=== PATIENT | male | born 1990 | race Caucasian/White ===

== ENCOUNTER → 2016-07-25 | Outpatient (CLI) | payer BC, OTHER ==
[~2016-07-25] MED LIST: ACIPHEX 20 MG T20 MG PO; AMBIEN 5 MG TABL5 M1 PO; AMBIEN PO; ATIVAN0.5 MG PO; BUPRENORPHIN-N1 EACH SL; BUTRANS1 EAC1 TD; CLONAZEPAM 1 MG1 M1 PO; CLONIDINE0.1 PO; CREON 10 CAPSUL1 CA1 PO; DIPHENHIST50 MG PO; HYDROMORPHONE ER8 MG PO; HYDROMORPHONE HC8 MG PO; IBUPROFEN 200200 M1 PO; LASIX 20 MG TAB20 MG PO; NORTRIPTYLINE H10 M1 GT; OXYCODONE HCL15 MG PO; OXYCODONE HCL30 MG PO; OXYCODONE PO; OXYCONTIN15 MG PO; PERCOCET 10-321 EACH PO; PHENERGAN 25 MG25 M1 PO; PHENERGAN RECTAL; ROBAXIN 750 MG750 M1 PO; ROXICODONE30 M1; SANDOSTATI50 MCG/1 M IJ; SUBOXONE 4 MG-1 EACH SL; SUBOXONE 8 MG-1 EAC3 SL; TEFLARO 600 MG600 MG IV; TYLENOL325 MG PO; ZOFRAN8 MG PO; ZOLPIDEM TARTRA10 MG PO
== END ==
LOC: HYPER 09:51
DX: T23.321A Burn of third degree of single right finger (nail) except thumb, initial encounter (principal); K86.1 Other chronic pancreatitis; F17.210 Nicotine dependence, cigarettes, uncomplicated; T31.0 Burns involving less than 10% of body surface; X17.XXXA Contact with hot engines, machinery and tools, initial encounter; Y93.89 Activity, other specified; Y92.89 Other specified places as the place of occurrence of the external cause; Y99.8 Other external cause status

== ENCOUNTER → 2016-08-17 | Outpatient (CLI) | payer BC, OTHER | LOC: HYPER 07:07 | DX: S61.206D Unspecified open wound of right little finger without damage to nail, subsequent encounter (principal); K86.1 Other chronic pancreatitis; F17.210 Nicotine dependence, cigarettes, uncomplicated; X08.8XXD Exposure to other specified smoke, fire and flames, subsequent encounter ==

== ENCOUNTER → 2018-02-20 | Outpatient (CLI) | payer OTHER ==
[~2018-02-20] VITALS: Ht 185.4 cm; Wt 71.7 kg
[~2018-02-20] MED LIST changes: +ADDERALL XR 3030 MG PO; +ALPRAZOLAM1 MG PO; +AMBIEN 10 MG TA10 MG PO; +ROXICODONE15 M1 PO
--- NOTE | ~2018-02-20 | HPC ---
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 I am seeing the patient today for the first time at the [facility] in around 2 years. I had been seeing him at [facility] due to insurance restrictions. He is here today because my clinic will be moving from [facility] to [place]. He is on time for his scheduled medication. He is in school during finals week. This is a stress time for all students but particularly stressful for the patient who has prone towards stress related psychosomatic physical illness with increased abdominal pain and insomnia. He tells me he has not slept for over 4 nights. He has utilized his previous breakthrough medications and has been continuing on his Suboxone 1/4-1/2 tablet b.i.d. He tells me that he is in midst of a crisis, which is our term for severe abdominal pain episode, which in the past would have typically sent him to the Emergency Room. MEDICATIONS: Suboxone /4-1/2 tablet of Suboxone 8/2 b.i.d., oxycodone 15 mg 15 tablets provided per month to be utilized during severe episodes of pain only and to prevent Emergency Room visit, alprazolam 1 mg t.i.d. provided by his psychiatrist. He has been on a combination of an opioid and a benzodiazepine for many years. There have been no overdose circumstances and he is well aware that he must cautiously utilize his medications. Adderall XR 30 mg capsule daily, zolpidem 10 mg at bedtime, Creon capsule, diphenhydramine 50-100 mg p.r.n., promethazine 25 mg p.r.n., Zofran p.r.n. ALLERGIES: MORPHINE, CODEINE, FENTANYL, TRAMADOL, VANCOMYCIN. PHYSICAL EXAMINATION: He is disheveled. 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 His shoes are untied. His hair is unkempt. His speech is slightly slurred. His thought pattern is anxious. His chest is clear. His cardiac rhythm is regular. His abdomen is soft and tender below the xiphoid. IMPRESSION: 1. Chronic intractable abdominal pain with intermittent pancreatitis secondary to sphincter of Oddi syndrome with history of sphincterotomy, followed by reflux. [address] [place] [address] PAIN MANAGEMENT CONSULTATION Name: DOROTHY COLES STRUM Room #: REG JORJEPaul Jaramillo#: [id number] Admission: 02/20/18 Attend Phys: Hasmukh Carrion MD Discharge: Date of : 86 Report #: [id number] 2. Chronic anxiety disorder. 3. Chronic insomnia. 4. Chronic intractable abdominal pain. 5. Management of high risk medications under terms of an opioid agreement and will be followed monthly. RECOMMENDATIONS: I provided him with his medication, Suboxone, oxycodone 15 tablets and Zofran 8 mg 12 tablets. I then called [facility] and discussed his care with the pharmacist there instructing her not to release his medications today, but to monitor him tomorrow and if he appeared disheveled to not provide it for him tomorrow either. Buccal drug screen was performed to ensure that his appearance and his affect is not related to substance. Sleep deprivation would certainly cause these symptoms. The drug screen will be useful. I spoke later in the day with the pharmacy. Inadvertently, he was written for OxyContin 15 mg much more expensive and slow release drug. He did not take the medication at the pharmacy. Replacement prescription was provided for , 02/22/2018. The patient was notified. Followup visit planned in 1 month and by phone. I have been in contact with his father as well, keeping within HIPAA boundaries to ensure that the patient's safety is our great concern. By: [id number] Hasmukh Carrion MD /nt
[2018-02-20 11:47] VITALS: BP 130/83
== END ==
LOC: PAIN 09:17
DX: R10.10 Upper abdominal pain, unspecified (principal); G89.29 Other chronic pain; M54.6 Pain in thoracic spine; V89.2XXA Person injured in unspecified motor-vehicle accident, traffic, initial encounter; Z79.899 Other long term (current) drug therapy

== ENCOUNTER → 2018-03-15 | Outpatient (CLI) | payer OTHER ==
[~2018-03-15] VITALS: Ht 185.4 cm; Wt 75.1 kg
--- NOTE | ~2018-03-15 | HPC ---
[facility] [address] [place] [address] PAIN MANAGEMENT CONSULTATION Name: DOROTHY COLES Room #: REG MANDEEP SheikhKassi#: [id number] Admission: 03/15/18 Attend Phys: Hasmukh Carrion MD Discharge: Date of : 86 Report #: [id number] THIS REPORT FOR: //name// CC: [facility] physician/PCP Zaheer Savage DATE OF SERVICE: 03/15/2018 CHIEF COMPLAINT: Followup visit for management of chronic episodic abdominal pain, abdominal colic and pancreatitis. Followup visit for patient today. He is doing better since school is now over for this semester. 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 With your crisis of sorts during the final week of school, his abdominal pain exacerbated by the stress. He clearly has psychosomatic symptoms that exacerbate his abdominal pain. Now that he has slept and is no longer worrying about his tests, he seems to be more stable. I provided him with an additional prescription at last visit. He is here today for renewal of medication for the next 2 months. MEDICATIONS: Include: 1. Suboxone 1/2-03/16 tablet b.i.d. of Suboxone 10/12. 2. Oxycodone 15 mg are provided monthly for him to use only for severe abdominal episodes which keep him out of the Emergency Room. There have been months when he has not used his allotment. Continued to stress lowest effective dose. 3. Alprazolam 1 mg t.i.d. provided by psychiatrist, Dr. Zaheer Roberts. This combination of medications have been taken by him for anxiety disorder and he has had no complications. We will continue to monitor carefully. He is cautioned to not over utilize these medicines, continues to use Adderall 30 mg daily. He was encouraged to try and discontinue these medications. Creon, diphenhydramine, promethazine and Zofran p.r.n. ALLERGIES: MORPHINE, CODEINE, FENTANYL, TRAMADOL, VANCOMYCIN. PHYSICAL EXAMINATION: He looks more relaxed today. At last visit, he was disheveled. His speech pattern is clear. Thought process is clear. Does not appear anxious or overmedicated. His abdomen is soft and nontender. IMPRESSION: 1. Chronic abdominal pain with intermittent abdominal colic, likely related to episodes of pancreatitis. History of sphincter of Oddi syndrome following [facility] [email or web address] [address] PAIN MANAGEMENT CONSULTATION Name: SANKETDOROTHY CURRAN Room #: REG MANDEEP BrunnerKassiJacintoKassi#: [id number] Admission: 03/15/18 Attend Phys: Hasmukh Carrion MD Discharge: Date of : 86 Report #: [id number] sphincterotomy. 2. Management of high risk medication. 3. Chronic recurring anxiety disorder and insomnia. 4. Management of high risk medications under terms of an opioid contract. PLAN: 1. I reviewed with him his buccal drug screening from last visit. There were no illegal medications noted in his screen. Benzodiazepines were noted. 2. Discussed the importance of lowest effective dose and we reviewed our goals of treatment to avoid the Emergency Room and rely less on medication for management of his abdominal pain. 3. Continue with goal direction and school. 4. Followup visit planned in 2 months. By: [id number] Hasmukh Carrion MD /nt
[2018-03-15 09:03] VITALS: BP 135/97
--- NOTE | 2018-03-15 09:12 | NUR ---
Pain Clinic Assessment: 1. History of Osteoarthritis: Not Applicable History of Rheumatoid Arthritis: Not Applicable 2. Height: 6 ft. 1 in. 185.4 cm. Weight: 165.6 lb. oz. 75.116 kg. Patient's BMI: 21.9 3. Vital Signs: BP: 135/97 Pulse: 104 Resp: 18 Temp: 02 Sat: 100 ECG Mon: 4. Pain Intensity: 2 5. Fall Risk: Dizziness: N Needs help standing or walking: N Fallen in the last 3 months: N Fall risk comments: 6. Patient on Blood Thinner: None 7. History of Hypertension: N 8. Opioid Therapy greater than 6 weeks: Y Opiate Contract Signed: 08/24/15 9. Risk Assessment Tool Provided: HIGH RISK 11 10. Functional Assessment Tool: 11. Recreational Drug Use: Past greater than 3 mos Drug Type: Tobacco Use: Never Smoker Tobacco Type: Amount or Packs/day: How Many Years: Alcohol Use: No Frequency: Quant:
== END ==
LOC: PAIN 07:24
DX: R10.9 Unspecified abdominal pain (principal); F41.9 Anxiety disorder, unspecified; G47.00 Insomnia, unspecified; Z79.891 Long term (current) use of opiate analgesic; Z79.899 Other long term (current) drug therapy

== ENCOUNTER → 2018-05-28 | Outpatient (CLI) | payer OTHER ==
[~2018-05-28] VITALS: Ht 185.4 cm; Wt 75.3 kg
[~2018-05-28] MED LIST changes: +OXYCODONE-ACET1 EAC2 PO
--- NOTE | ~2018-05-28 | HPC ---
[facility] [address] [place] [address] PAIN MANAGEMENT CONSULTATION Name: DOROTHY COLES Room #: REG MANDEEP SheikhKassi#: [id number] Admission: 05/28/18 ������������������ Attend Phys: Hasmukh Carrion MD Discharge: ������������������ Date of : 86 Report #: [id number] THIS REPORT FOR: //name// CC: [facility] physician/PCP Hasmukh Carrion DATE OF SERVICE: 05/28/2018 Followup visit for chronic abdominal pain, intermittent with history of pancreatitis and sphincter of Oddi syndrome. The patient returned to the pain clinic today. I asked him to be more responsible in his appointments. Apparently, canceled his last appointment and then wanted to be immediately reinstated the next day for his medication. 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 He has been told all his life that he is brilliant and he is smart and can do well in school. He is now apparently studying astrophysics after attempts at biology, economics and physics. We discussed today responsibilities for managing his current medical condition. He is using Suboxone at a very low dose and I have been providing him with small amounts of oxycodone, which he uses only in crisis to avoid Emergency Room. As the record will reflect when he first came to our clinic, he was in the Emergency Room on multiple occasions, sometimes several times per month in order to receive intravenous opioids. He has been doing well from that standpoint and has avoided the Emergency Room for rescue. We have substantially reduced his use of oxycodone and other systemic opioids. A goal of remaining functional and active has been sought. I did challenge him today to try to get out and get a job. I told him today that we would reduce his oxycodone from 15 mg tablets to 10/325, but I will provide him with #15 tablets per month that he can use in case of emergency. The goal remains to avoid the hospital for rescue. PHYSICAL EXAMINATION: He is a bit disheveled. His affect is pleasant. He does not appear to be depressed or overmedicated. Examination of the abdomen reveals mild tenderness. Once again, his hands look dirtier than any mechanics. They are covered with deep seated grease and grime as well as heavy calluses. 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 IMPRESSION: 1. Chronic abdominal pain. 2. Management of high risk medications with Suboxone and small amount of [facility] [address] [place] [address] PAIN MANAGEMENT CONSULTATION Name: DOROTHY COLES Room #: REG CL Kannan.#: [id number] Admission: 05/28/18 ������������������ Attend Phys: Hasmukh Carrion MD Discharge: ������������������ Date of : 86 Report #: [id number] oxycodone per month. PLAN: I will continue to follow closely. His opioid agreement, the importance of safeguarding medications was reviewed. ��������������������������������������������� ���������������������������������������� By: ��������������������������������������������� [id number] Hasmukh Carrion MD /daniel
[2018-05-28 14:59] VITALS: BP 152/99
--- NOTE | 2018-05-28 15:02 | NUR ---
Pain Clinic Assessment: 1. History of Osteoarthritis: Not Applicable History of Rheumatoid Arthritis: Not Applicable 2. Height: 6 ft. 1 in. 185.4 cm. Weight: 166.0 lb. oz. 75.297 kg. Patient's BMI: 21.9 3. Vital Signs: BP: 152/99 Pulse: 107 Resp: 14 Temp: 02 Sat: 97 ECG Mon: 4. Pain Intensity: 2 5. Fall Risk: Dizziness: N Needs help standing or walking: N Fallen in the last 3 months: N Fall risk comments: 6. Patient on Blood Thinner: None 7. History of Hypertension: N 8. Opioid Therapy greater than 6 weeks: Y Opiate Contract Signed: 08/24/15 9. Risk Assessment Tool Provided: HIGH RISK 11 10. Functional Assessment Tool: 11. Recreational Drug Use: Past greater than 3 mos Drug Type: Tobacco Use: Never Smoker Tobacco Type: Amount or Packs/day: How Many Years: Alcohol Use: No Frequency: Quant:
== END ==
LOC: PAIN 05-10 07:02
DX: R10.11 Right upper quadrant pain (principal); G89.29 Other chronic pain; M54.5 Low back pain; Z79.899 Other long term (current) drug therapy

== ENCOUNTER → 2018-07-26 | Outpatient (CLI) | payer OTHER ==
[~2018-07-26] VITALS: Ht 185.4 cm; Wt 72.0 kg
[~2018-07-26] MED LIST changes: +BUPRENORPHINE HC2 MG SUBLING; +ONDANSETRON HCL4 M2 PO
[2018-07-26 13:31] VITALS: BP 143/101
--- NOTE | 2018-07-26 13:48 | NUR ---
Pain Clinic Assessment: 1. History of Osteoarthritis: Not Applicable History of Rheumatoid Arthritis: Not Applicable 2. Height: 6 ft. 1 in. 185.4 cm. Weight: 158.8 lb. oz. 72.031 kg. Patient's BMI: 21.0 3. Vital Signs: BP: 143/101 Pulse: 113 Resp: 12 Temp: 02 Sat: 97 ECG Mon: 4. Pain Intensity: 2 5. Fall Risk: Dizziness: N Needs help standing or walking: N Fallen in the last 3 months: Y Fall risk comments: PT HAS HIS OWN PLACE WERE HE LIVES BY HIMSELF 6. Patient on Blood Thinner: None 7. History of Hypertension: N 8. Opioid Therapy greater than 6 weeks: Y Opiate Contract Signed: 08/24/15 9. Risk Assessment Tool Provided: HIGH RISK 11 10. Functional Assessment Tool: 11. Recreational Drug Use: Past greater than 3 mos Drug Type: Tobacco Use: Never Smoker Tobacco Type: Amount or Packs/day: How Many Years: Alcohol Use: No Frequency: Quant:
--- NOTE | 2018-07-27 10:55 | HPC ---
[facility] [address] [place] [address] PAIN MANAGEMENT CONSULTATION Name: HAWADIVINEDOROTHY HANEY Room #: REG MANDEEP Ella#: [id number] Admission: 07/26/18 ������������������ Attend Phys: Yolis Garcia Discharge: ������������������ Date of : 86 Report #: [id number] THIS REPORT FOR: //name// CC: Yolis Garcia [facility] physician/PCP DATE OF SERVICE: 07/26/2018 CHIEF COMPLAINT: Chronic abdominal pain, intermittent history of pancreatitis and sphincter of Oddi syndrome. HISTORY OF PRESENT ILLNESS: This is a 27-year-old gentleman who returns to the pain clinic today for refill of his medications. He tells me that he is doing quite well and has been doing well since his last visit, his pain score is a 2/10. He said he has not been having very many flareups. He has not gone to the Emergency Room. He has been feeling quite well. He tells me that his pain is normally in the right upper quadrant or middle of his left abdomen that does shoot straight through into his back. He says when his pain is the worst, it is in his back and then he usually needs to go to the Emergency Room. Certain foods and stress makes it worse, but overall he feels like he is doing quite well. The patient's only complaint is he feels like lately he has been getting headaches, which that is not a normal occurrence for him. He did some research on his own. He believes that it is the Suboxone giving him these headaches. He feels like it is on the top part of his head and it makes him also sensitive to light and sounds. He was wondering if he could switch off Suboxone to Subutex, which is similar just without the naloxone. Otherwise, he feels like he is doing quite well. 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 ALLERGIES: MORPHINE, CODEINE, FENTANYL, TRAMADOL AND VANCOMYCIN. CURRENT LIST OF MEDICATIONS: Zofran 4 mg every 8 hours p.r.n., Suboxone 10/12 uses one eighth of a film daily, oxycodone 15 mg p.r.n. emergency use only, alprazolam 1 mg about 3 times a week and Adderall 30 mg daily. PQRS: 1. He denies any osteoarthritis or rheumatoid arthritis. 2. Height is 6 feet 1 inch, weight is 158 and BMI is 21. Vital signs 143/101, pulse is 113, respirations 12, oxygen sat is 97. Pain score is 2/10 3. Fall risk. Denies dizziness. He does not need help walking or standing. He has not fallen in the last 3 months. 4. The patient is not on any blood thinners. He does not have any history of hypertension. 5. Opioid therapy is greater than 6 weeks; therefore, an opioid signed contract [address] [address] PAIN MANAGEMENT CONSULTATION Name: DOROTHY COLESRELL Room #: REG MANDEEP Jaramillo#: [id number] Admission: 07/26/18 ������������������ Attend Phys: Yolis Garcia Discharge: ������������������ Date of : 86 Report #: [id number] is on the chart. His risk assessment tool is high. His functional assessment is 33/70. 6. Recreational drug use is greater than 3 months in the past. He is not a smoker and does not drink alcohol. We did check the prescription monitoring system. The patient is filling appropriately for his Suboxone and his oxycodone. There is a drug screen on the chart within the past year as well. PHYSICAL EXAMINATION: GENERAL: This is a 27-year-old gentleman. His affect is pleasant today, does not appear to be overmedicated or depressed. He is alert and orientated. HEENT: Normocephalic and atraumatic. Extraocular eye muscles are intact. Mucous membranes are moist. ABDOMEN: Revealed minor tenderness in the upper quadrants of his stomach. EXTREMITIES: Hands appear dirty, picking at them while we are sitting here. He has calluses on all fingers. He states he has been doing significant yard work with his family. The patient walks with a normal gait and does not complain of any radicular pain or back pain today. IMPRESSION: 1. Chronic abdominal pain. 2. Management of high risk medications on Suboxone and small amounts of oxycodone. 3. Anxiety. We reviewed the fact that opiate medications are being used to provide analgesia adequate to support activities of daily living, not attempting to achieve a specific pain score on the 0-10 Visual Analog Scale. The current opiate medications are providing sufficient analgesia to allow the patient to participate in activities of daily living. The patient is not exhibiting any aberrant behavior suggestive of drug diversion. The patient is not having any adverse reactions to medications. The patient is not suffering from daytime somnolence or mental acuity changes. The patient is managing opiate-induced constipation with appropriate nzxw-zsi-[id number] agents and dietary considerations. The patient was counseled on concern for caution with operating a motor vehicle while using opiate medications. A physical exam was performed and the patient's functional status was evaluated. All patients with back pain were advised against the bed rest greater than 4 days and were advised to return to normal activities. Pain score assessment was noted and the treatment plan was reviewed with the patient. All current medications, both prescribed and OTC were reviewed and reconciled on the electronic medical record. Tobacco screening was accomplished and smoking cessation was advised when indicated. BMI was noted and diet/exercise modification was recommended for all patients following outside normal [facility] [address] [place] [address] PAIN MANAGEMENT CONSULTATION Name: HAWAESTIVENDOROTHY ESPOSITO Room #: REG [facility] Kori.#: [id number] Admission: 07/26/18 ������������������ Attend Phys: Yolis Garcia Discharge: ������������������ Date of : 86 Report #: [id number] parameters. I reviewed with the patient today their responsibilities to safeguard prescription medications, reviewed their responsibility to utilize medications only as prescribed by the physician. They are to seek and receive pain medications only from 1 physician group ( [facility]). They are to use 1 pharmacy and keep the clinic informed if they change pharmacies. Their responsibilities include making followup visits in a timely fashion and to avoid abrupt discontinuation of medication usage. Their responsibilities further include bringing their medications (bottles from the pharmacy with residual pills) to the visit for possible confirmation of pill counts and the patient understands it is their responsibility to submit to random drug screens to ensure both that the medications prescribed are present, and that no other controlled substances are present. All prescriptions provided today were generated electronically. PLAN: 1. We discussed treatment options with the patient today. He is requesting to stop Suboxone and just go to Subutex or buprenorphine. He stated his reasoning he thinks this is causing his headache that he has been having for the past few months and has researched this topic and believes that he would like to try this other medication. We did also discuss maybe weaning off his Suboxone altogether and just using the oxycodone in an emergency situation when he has initial flareups to keep him out of the Emergency Room. Dr. Hasmukh Carrion was present for part of this meeting and we agreed to trial Subutex. 2. Scripts given today for Subutex 2 mg half a tablet once a day, #15, this is a 30-day supply as well as oxycodone 15 mg, #15 tablets to be released today and then again in 4 weeks. 3. The patient will call for an appointment when he is low on his medication in September. 4. The patient again seen with Dr. Hasmukh Carrion today and who also collaborated care. ��������������������������������������������� <ELECTRONICALLY SIGNED> ���������������������������������������� By: Yolis Garcia ��������������������������������������������� 07/27/18 [id number] Yolis Garcia /nt
== END ==
LOC: PAIN 06:58
DX: R10.9 Unspecified abdominal pain (principal); G89.29 Other chronic pain; F41.9 Anxiety disorder, unspecified; Z88.0 Allergy status to penicillin; Z79.899 Other long term (current) drug therapy

== ENCOUNTER → 2018-09-24 | Outpatient (CLI) | payer OTHER ==
[~2018-09-24] VITALS: Ht 185.4 cm; Wt 72.5 kg
[2018-09-24 14:21] VITALS: BP 136/85
--- NOTE | 2018-09-24 14:31 | NUR ---
Pain Clinic Assessment: 1. History of Osteoarthritis: Not Applicable History of Rheumatoid Arthritis: Not Applicable 2. Height: 6 ft. 1 in. 185.4 cm. Weight: 159.8 lb. oz. 72.485 kg. Patient's BMI: 21.1 3. Vital Signs: BP: 136/85 Pulse: 115 Resp: 14 Temp: 02 Sat: 97 ECG Mon: 4. Pain Intensity: 4-5 5. Fall Risk: Dizziness: N Needs help standing or walking: N Fallen in the last 3 months: Y Fall risk comments: PT HAS HIS OWN PLACE WERE HE LIVES BY HIMSELF 6. Patient on Blood Thinner: None 7. History of Hypertension: N 8. Opioid Therapy greater than 6 weeks: Y Opiate Contract Signed: 08/24/15 9. Risk Assessment Tool Provided: HIGH RISK 11 10. Functional Assessment Tool: 11. Recreational Drug Use: Past greater than 3 mos Drug Type: Tobacco Use: Never Smoker Tobacco Type: Amount or Packs/day: How Many Years: Alcohol Use: No Frequency: Quant:
--- NOTE | 2018-09-25 08:11 | HPC ---
[facility] [address] [place] [address] PAIN MANAGEMENT CONSULTATION Name: HAWAESTIVENDOROTHY ESPOSITO Room #: REG MANDEEP Ella#: [id number] Admission: 09/24/18 ������������������ Attend Phys: Yolis Garcia Discharge: ������������������ Date of : 86 Report #: [id number] THIS REPORT FOR: //name// CC: Yolis Garcia [facility] physician/PCP DATE OF SERVICE: 09/24/2018 CHIEF COMPLAINT: Chronic abdominal pain, history of pancreatitis and sphincter of Oddi syndrome. HISTORY OF PRESENT ILLNESS: This is a 27-year-old gentleman who returns to the pain clinic today for refill of his medications. He uses this medication to help treat his chronic abdominal pain. He tells me his pain score today is a 4/5. It does radiate from his right upper quadrant of his abdomen into his back. It is a dull aching, constant pain. It is worse with eating certain food and stress. Says medications are helpful. He does tell me that since we had switched him from Suboxone to Subutex, he feels that he has less of a headache and he feels that it is very helpful. He does use oxycodone IR for severe pain to keep him out of the hospital for a rescue medication. He tells me that he has not been to the Emergency Room. 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 ALLERGIES: MORPHINE, CODEINE, FENTANYL, TRAMADOL AND VANCOMYCIN. CURRENT LIST OF MEDICATIONS: Oxycodone IR p.r.n., buprenorphine 1 mg daily, Zofran p.r.n., Xanax 1 mg about 3 times a week, Adderall XR 30 mg capsules daily, Creon capsules with meals and Phenergan p.r.n. PQRS: 1. He denies any history of rheumatoid or osteoarthritis. 2. Height is 6 feet 1 inch, weight is 159, BMI is 21. 3. Vital signs: Blood pressure 136/85, pulse is 115, respirations 14, oxygen sat is 97%. 4. Pain score 4-5. 5. Denies dizziness. Does not need help walking or standing. He has not fallen in the last 3 months. 6. The patient is not on any blood thinners or hypertension. 7. Opioid therapy is greater than 6 weeks; therefore, an opioid signed contract was on the chart. Risk assessment tool is high. Functional assessment is 33/70. 8. Recreational drug use in the past. States not a smoker, but does show positive on his drug screen and no longer drinks alcohol. We did check the prescription monitoring system. The patient has filled his medications on time and appropriately. There is a recent drug screen on the [address] [address] PAIN MANAGEMENT CONSULTATION Name: DOROTHY COLES Room #: REG CLPaul Jaramillo#: [id number] Admission: 09/24/18 ������������������ Attend Phys: Yolis Garcia Discharge: ������������������ Date of : 86 Report #: [id number] chart that did show nicotine even though he does deny it and some gabapentin. PHYSICAL EXAMINATION: GENERAL: This is a 27-year-old gentleman. His affect is pleasant today, quite upbeat. He does not appear overmedicated. He is alert and orientated. HEENT: Normocephalic, atraumatic. Extraocular eye muscles are intact. Mucous membranes are moist. ABDOMEN: Mild tenderness in the right upper quadrant of his stomach. EXTREMITIES: Hands appeared dirty and stained. He does have calluses on his fingers. He walks with a normal gait. He does not complain of any radicular pain or back pain today. IMPRESSION: 1. Chronic abdominal pain. 2. History of pancreatitis. 3. Management of high-risk medications under terms of a written opioid agreement. 4. History of sphincter of Oddi syndrome following sphincterectomy. We reviewed the fact that opiate medications are being used to provide analgesia adequate to support activities of daily living, not attempting to achieve a specific pain score on the 0-10 Visual Analog Scale. The current opiate medications are providing sufficient analgesia to allow the patient to participate in activities of daily living. The patient is not exhibiting any aberrant behavior suggestive of drug diversion. The patient is not having any adverse reactions to medications. The patient is not suffering from daytime somnolence or mental acuity changes. The patient is managing opiate-induced constipation with appropriate jdxf-usq-zorwdyg agents and dietary considerations. The patient was counseled on concern for caution with operating a motor vehicle while using opiate medications. A physical exam was performed and the patient's functional status was evaluated. All patients with back pain were advised against the bed rest greater than 4 days and were advised to return to normal activities. Pain score assessment was noted and the treatment plan was reviewed with the patient. All current medications, both prescribed and OTC were reviewed and reconciled on the electronic medical record. Tobacco screening was accomplished and smoking cessation was advised when indicated. BMI was noted and diet/exercise modification was recommended for all patients following outside normal parameters. I reviewed with the patient today their responsibilities to safeguard prescription medications, reviewed their responsibility to utilize medications only as prescribed by the physician. They are to seek and receive pain medications only from 1 physician group ( [facility]). They are to use 1 pharmacy and keep the clinic informed if they change pharmacies. Their [facility] [address] [place] [address] PAIN MANAGEMENT CONSULTATION Name: HAWAESTIVENDOROTHY ESPOSITO Room #: REG JORJEPaul Jaramillo#: [id number] Admission: 09/24/18 ������������������ Attend Phys: Yolis DONN Garcia Discharge: ������������������ Date of : 86 Report #: [id number] responsibilities include making followup visits in a timely fashion and to avoid abrupt discontinuation of medication usage. Their responsibilities further include bringing their medications (bottles from the pharmacy with residual pills) to the visit for possible confirmation of pill counts and the patient understands it is their responsibility to submit to random drug screens to ensure both that the medications prescribed are present, and that no other controlled substances are present. All prescriptions provided today were generated electronically. PLAN: 1. We discussed treatment options with the patient today. The patient finds the Subutex to be very helpful in controlling his daily pain. He has no headaches since switching from the Suboxone. Refills of this medication for 2 mg 1/2 a tablet daily, #15 with 1 additional refill. 2. Prescription given for oxycodone 10/325 q. 6 hours, #15 for release today and 4 weeks. This is a rotation back to his previous medication. Dr. Hasmukh Carrion had allowed him 2 months of the OxyIR, but according to his notes and dictation, was to return back to this medication. The patient is unsure about the Tylenol use. I explained to him if he is taking 1/2 a tablet or even 1 tablet every other day, that is only 325 mg a tablet, which is a very, very low dose. He verbalizes understanding. 3. The patient is instructed to return in 2 months to call for an appointment in a timely fashion. 4. Dr. Carrion did see the patient and collaborated care today. ��������������������������������������������� <ELECTRONICALLY SIGNED> ���������������������������������������� By: Yolis Garcia ��������������������������������������������� 09/25/18 0811 [id number] Yolis Garcia /nt
== END ==
LOC: PAIN 10:40
DX: R10.9 Unspecified abdominal pain (principal); Z87.19 Personal history of other diseases of the digestive system; Z79.891 Long term (current) use of opiate analgesic; Z96.89 Presence of other specified functional implants

== ENCOUNTER → 2018-11-15 | Outpatient (CLI) | payer OTHER ==
[~2018-11-15] VITALS: Ht 185.4 cm; Wt 77.2 kg
[~2018-11-15] MED LIST changes: +BUPRENORPHIN-N1 EACH SUBLING; +LIDOCAINE VISC100 ML SW&SWALLOW
[2018-11-15 10:40] VITALS: BP 150/99
--- NOTE | 2018-11-15 10:53 | NUR ---
Pain Clinic Assessment: 1. History of Osteoarthritis: Not Applicable History of Rheumatoid Arthritis: Not Applicable 2. Height: 6 ft. 1 in. 185.4 cm. Weight: 170.2 lb. oz. 77.202 kg. Patient's BMI: 22.5 3. Vital Signs: BP: 150/99 Pulse: 95 Resp: 14 Temp: 02 Sat: 100 ECG Mon: 4. Pain Intensity: 4 5. Fall Risk: Dizziness: N Needs help standing or walking: N Fallen in the last 3 months: N Fall risk comments: PT HAS HIS OWN PLACE WERE HE LIVES BY HIMSELF 6. Patient on Blood Thinner: None 7. History of Hypertension: N 8. Opioid Therapy greater than 6 weeks: Y Opiate Contract Signed: 08/24/15 9. Risk Assessment Tool Provided: HIGH RISK 11 10. Functional Assessment Tool: 11. Recreational Drug Use: Past greater than 3 mos Drug Type: Tobacco Use: Never Smoker Tobacco Type: Amount or Packs/day: How Many Years: Alcohol Use: No Frequency: Quant:
--- NOTE | 2018-11-15 16:30 | HPC ---
[facility] [address] [place] [address] PAIN MANAGEMENT CONSULTATION Name: DOROTHY COLES Room #: REG MANDEEP Ella#: [id number] Admission: 11/15/18 Attend Phys: Yolis Garcia Discharge: Date of : 86 Report #: [id number] THIS REPORT FOR: //name// CC: Yolis Garcia [facility] physician/PCP DATE OF SERVICE: 11/15/2018 CHIEF COMPLAINT: Chronic abdominal pain, history of pancreatitis and sphincter of Oddi syndrome. HISTORY OF PRESENT ILLNESS: This is a 27-year-old gentleman who returns to the pain clinic today for refill of his medication that he uses to treat his ongoing abdominal pain. The patient reports his pain score is a 4/10 today, mostly in his right upper quadrant of his abdomen that does radiate to his back. He also has some ongoing mouth sores that he has been treated with lidocaine swish. He woke up, he reports, with significant mouth sores on his tongue that had pustules and were draining as well as cracked lower lip that had been bleeding during the night. He is unsure which caused all of this. He does not remember eating spicy food or food that burned his tongue that were too hot. He also does not report any use of chemicals that he may have inhaled prior to this outbreak of his mouth sores. They are slowly healing and he is able to tolerate food again by using the lidocaine swish that he has been prescribed from his primary doctor. Today, he is here seeing our clinic for refill of his Suboxone and oxycodone. ALLERGIES: MORPHINE, CODEINE, FENTANYL, TRAMADOL, and VANCOMYCIN. CURRENT LIST OF MEDICATIONS: Ambien p.r.n., lidocaine viscous 2%, oxycodone 10/325 p.r.n., Suboxone 8/2 one-half daily, Zofran p.r.n., Xanax 1 mg p.r.n., Adderall 30 mg daily, Creon 10 mg tablets with meals and Phenergan p.r.n. PQRS: 1. He denies a history of osteoarthritis or rheumatoid arthritis. 2. Height is 6 feet 1 inch, weight is 170, BMI is 22. 3. Vital signs; blood pressure is 150/99, pulse is 95, respirations 14, oxygen sat is 100%. 4. Pain score is 4/10. 5. Denies dizziness. Does not need help walking or standing. Has not fallen in the last 3 months. 6. He is not on any blood thinners or medicine for hypertension. 7. Opioid therapy is greater than 6 weeks; therefore, an opioid signed contract is on the chart. 8. His risk assessment is high. His functional assessment is 33/70. 9. Recreational drug use in the past. He is not a smoker [place] [address] PAIN MANAGEMENT CONSULTATION Name: DOROTHY COLES [place] Room #: REG MANDEEP Jaramillo#: [id number] Admission: 11/15/18 Attend Phys: Yolis Garcia Discharge: Date of : 86 Report #: [id number] According to the prescription monitoring system, the patient is filling appropriately for his medication and he is due to fill those today. There is a recent drug screen on the chart that is appropriate as well. PHYSICAL EXAMINATION: GENERAL PHYSICAL EXAMINATION: This is a 27-year-old gentleman who appears his stated age, placing his pain score at 4/10 today. Does not appear overmedicated. He is alert and orientated. HEENT: Normocephalic, atraumatic. Extraocular eye muscles are intact. Lower lip is very dry and cracked with some dried blood on his lips. His tongue has healing areas with a new skin developing from a recent pustule outbreak. LUNGS: Clear to auscultation. ABDOMEN: Mild tenderness in his upper quadrant of his stomach. EXTREMITIES: Hands appear dirty from where he picks at them, but they clean as we have seen them in quite a while. He has calluses on all of his fingers. He walks with a normal gait. Does not complain of any back pain. IMPRESSION: 1. Chronic abdominal pain. 2. History of pancreatitis. 3. History of sphincter of Oddi syndrome following sphincterectomy. 4. Management of high risk medications under written opioid agreement. 5. Recent mouth sores, requiring medication. We reviewed the fact that opiate medications are being used to provide analgesia adequate to support activities of daily living, not attempting to achieve a specific pain score on the 0-10 Visual Analog Scale. The current opiate medications are providing sufficient analgesia to allow the patient to participate in activities of daily living. The patient is not exhibiting any aberrant behavior suggestive of drug diversion. The patient is not having any adverse reactions to medications. The patient is not suffering from daytime somnolence or mental acuity changes. The patient is managing opiate-induced constipation with appropriate lhef-sjd-nibfnfm agents and dietary considerations. The patient was counseled on concern for caution with operating a motor vehicle while using opiate medications. A physical exam was performed and the patient's functional status was evaluated. All patients with back pain were advised against the bed rest greater than 4 days and were advised to return to normal activities. Pain score assessment was noted and the treatment plan was reviewed with the patient. All current medications, both prescribed and OTC were reviewed and reconciled on the electronic medical record. Tobacco screening was accomplished and smoking cessation was advised when indicated. BMI was noted and diet/exercise modification was recommended for all patients following outside normal parameters. [facility] [address] [place] [address] PAIN MANAGEMENT CONSULTATION Name: HAWADIVINEDOROTHY HANEY Room #: REG [facility] Kori.#: [id number] Admission: 11/15/18 Attend Phys: Yolis Garcia Discharge: Date of : 86 Report #: [id number] I reviewed with the patient today their responsibilities to safeguard prescription medications, reviewed their responsibility to utilize medications only as prescribed by the physician. They are to seek and receive pain medications only from 1 physician group ( [facility]). They are to use 1 pharmacy and keep the clinic informed if they change pharmacies. Their responsibilities include making followup visits in a timely fashion and to avoid abrupt discontinuation of medication usage. Their responsibilities further include bringing their medications (bottles from the pharmacy with residual pills) to the visit for possible confirmation of pill counts and the patient understands it is their responsibility to submit to random drug screens to ensure both that the medications prescribed are present, and that no other controlled substances are present. All prescriptions provided today were generated electronically. PLAN: 1. We discussed treatment options with the patient today. The patient found buprenorphine 2 mg not as beneficial as the Suboxone 10/12 when he was taking 1/2 tablet a day since his last visit and we had called in a prescription for that in October. The patient is here for refills of this today. He finds that the Suboxone much more beneficial. Scripts given today for Suboxone 10/12 #15 to release in 4 weeks and 8 weeks as well as Percocet #15 for today and 4-week release. He is given this medicine to keep him out of the Emergency Room as a rescue medicine when he has a severe flare. This has been very beneficial reducing his Emergency Room visits for his ongoing abdominal pain. 2. The patient will return as needed in 2-3 months. At that time, we will repeat a urine drug screen on him since it will be time for his yearly repeat. 3. Dr. Hasmukh Carrion did see the patient today and collaborated care as well. <ELECTRONICALLY SIGNED> By: Yolis Garcia 11/15/18 1630 [id number] [id number] Yolis Garcia /nt
== END ==
LOC: PAIN 06:54
DX: R10.9 Unspecified abdominal pain (principal); K85.90 Acute pancreatitis without necrosis or infection, unspecified; K83.4 Spasm of sphincter of Oddi; Z88.8 Allergy status to other drugs, medicaments and biological substances; Z79.899 Other long term (current) drug therapy; Z79.891 Long term (current) use of opiate analgesic

== ENCOUNTER → 2019-11-11 | Outpatient (CLI) | payer OTHER ==
[~2019-11-11] VITALS: Ht 185.4 cm; Wt 76.2 kg
[~2019-11-11] MED LIST changes: +PERCOCET 10-321 EAC1 PO
[2019-11-11 11:16] VITALS: BP 139/78
--- NOTE | 2019-11-11 11:18 | NUR ---
Pain Clinic Assessment: 1. History of Osteoarthritis: DENIES History of Rheumatoid Arthritis: DENIES 2. Height: 6 ft. 1 in. 185.4 cm. Weight: 168.0 lb. oz. 76.204 kg. Patient's BMI: 22.2 3. Vital Signs: BP: 139/78 Pulse: 108 Resp: 15 Temp: 02 Sat: 97 ECG Mon: 4. Pain Intensity: 4 AVG 5. Fall Risk: Dizziness: N Needs help standing or walking: N Fallen in the last 3 months: N Fall risk comments: PT HAS HIS OWN PLACE WERE HE LIVES BY HIMSELF 6. Patient on Blood Thinner: None 7. History of Hypertension: N 8. Opioid Therapy greater than 6 weeks: Y Opiate Contract Signed: 08/24/15 9. Risk Assessment Tool Provided: HIGH RISK 9 10. Functional Assessment Tool: 11. Recreational Drug Use: Past greater than 3 mos Drug Type: Tobacco Use: Never Smoker Tobacco Type: Amount or Packs/day: How Many Years: Alcohol Use: No Frequency: Quant:
--- NOTE | 2019-11-12 07:46 | HPC ---
[facility] [address] [place] [address] PAIN MANAGEMENT CONSULTATION Name: DOROTHY COLES Room #: REG MANDEEP BrunnerKassiJacintoKassi#: [id number] Admission: 11/11/19 Attend Phys: Yolis Garcia Discharge: Date of : 86 Report #: [id number] THIS REPORT FOR: cc: PHIL - No family physician/PCP FAM - No family physician/PCP Yolis Garcia ~ CC: Hasmukh Carrion MD DATE OF SERVICE: 11/11/2019 CHIEF COMPLAINT: Chronic abdominal pain with a history of pancreatitis and sphincter of Oddi syndrome. HISTORY OF PRESENT ILLNESS: This is a 28-year-old gentleman who returns to the pain clinic today for refills of his medication. Today, he is requesting a change in his Suboxone to plain buprenorphine. He feels that at times he has been developing a headache after he takes his dose of the medication. He is wondering if it is not from the naloxone. So today, he is requesting a change. He does continue to take his Percocet on a very as needed basis. This is for emergency use only to keep him out of the Emergency Room. The patient reports he has not been to the hospital in several months. Today, the patient is reporting a pain score of 4/10. He feels that it is an average number for his pain, stating it is in his upper right quadrant, sometimes it radiates into his back. It is a dull, constant, aching pain, especially when he is a very stressful situations. He has recently restarted school at , but since the COVID outbreak he is unsure if he is going to graduate in July like he has been planning due to him having to work on group projects, os this has been causing some increased stress for him. The patient also presents today with a very reddened right eye. He reports a box hit him in the eye and he has been having issues for about 2 weeks. He has not sought out medical care for this issue. ALLERGIES: MORPHINE, CODEINE, FENTANYL, TRAMADOL AND VANCOMYCIN. CURRENT LIST OF MEDICATIONS: Suboxone 8/2 half a tablet daily, oxycodone 10/325 p.r.n., Zofran, alprazolam, Adderall, lipase, Phenergan. PQRS: 1. He denies osteoarthritis or rheumatoid arthritis. 2. Height is 6 feet 1 inch, weight is 168, BMI is 22. 3. Vital signs; blood pressure 139/78, pulse is 108, respirations 14, oxygen sat is 97%. Pain score is 4/10. 4. Denies dizziness, does not need help walking or standing, has not fallen in the last 3 months. The patient is not on any blood thinners or hypertension medicines. [address] [address] PAIN MANAGEMENT CONSULTATION Name: DOROTHY COLES Room #: REG CLPaul Jaramillo#: [id number] Admission: 11/11/19 Attend Phys: Yolis Garcia Discharge: Date of : 86 Report #: [id number] 5. He has opioid signed contract on the chart. Risk assessment is high. Functional assessment is 27/70. 6. Recreational drug use, he denies in the past 3 months. He is not a smoker and does not drink alcohol. According to the prescription monitoring system, the patient is filling appropriately. He is due to fill his medications today. His morphine milliequivalent is 60 MME. PHYSICAL EXAMINATION: GENERAL: This is a 28-year-old, alert and orientated gentleman who appears to have no signs of overmedication. He is placing his pain score at 4/10 today. He is slightly disheveled looking in his appearance. HEENT: Normocephalic, atraumatic. His right eye is swollen, watery and has some discharge. Scleare is reddened. Mucous membranes are moist. He is wearing a mask. ABDOMEN: He has tenderness in his upper quadrant on the right side. MUSCULOSKELETAL: He moves with no discomfort, moves easily from the standing to sitting position. IMPRESSION: 1. Chronic abdominal pain. 2. History of pancreatitis. 3. History of sphincter of Oddi syndrome following sphincterectomy. 4. Right eye recent injury. 5. Management of high risk medications under terms of written opioid agreement. PLAN: 1. We discussed treatment options with the patient today. He would like to change his medication from Suboxone to buprenorphine due to some headaches he has been experiencing after he takes his dose. He feels they have been increasing in the length after he does take his medication. I discussed this case with Dr. Hasmukh Carrion. At this time, he would like to keep him on his current level of medication. He believes it will be quite expensive to switch to the buprenorphine because he would require significant more tablets in his month. The patient instructed to pay closer attention when the headaches start and how long they last and report back to us. Scripts given today for Suboxone 8/2 half a tablet of a film twice a day, quantity 15 with 1 refill. 2. We will refill his oxycodone. He takes these very sparingly to keep out of the Emergency Room, 15 tablets given with 1 refill in 4 weeks. 3. I have taken the liberty of giving him an general manager road production number. Patient did call while I was with him in the room and schedule an appointment for tomorrow. The patient states he is currently wearing his contact. I encouraged him to remove that due to the redness of his sclerae and watering drainage in his eye [facility] [address] [place] [address] PAIN MANAGEMENT CONSULTATION Name: DOROTHY COLES AVILLA Room #: REG Paul Jaramillo#: [id number] Admission: 11/11/19 Attend Phys: Yolis Garcia Discharge: Date of : 86 Report #: [id number] until he sees the general manager road production tomorrow. The patient verbalizes understanding. The patient is seen in collaboration with Dr. Hasmukh Carrion. <ELECTRONICALLY SIGNED> By: Yolis Garcia 11/12/19 0746 [id number] Yolis Garcia /nt
== END ==
LOC: PAIN 04-24 10:14
PROVIDERS: ATTEND Clinical Nurse Specialist Adult Health
DX: G89.29 Other chronic pain (principal); S05.91XD Unspecified injury of right eye and orbit, subsequent encounter; K83.4 Spasm of sphincter of Oddi; F11.20 Opioid dependence, uncomplicated; Z87.39 Personal history of other diseases of the musculoskeletal system and connective tissue; Z87.19 Personal history of other diseases of the digestive system; Z79.899 Other long term (current) drug therapy

== ENCOUNTER → 2020-01-16 | Outpatient (CLI) | payer OTHER ==
[~2020-01-16] VITALS: Ht 185.4 cm; Wt 71.5 kg
[2020-01-16 13:16] VITALS: BP 154/97
--- NOTE | 2020-01-16 13:25 | NUR ---
Pain Clinic Assessment: 1. History of Osteoarthritis: DENIES History of Rheumatoid Arthritis: DENIES 2. Height: 6 ft. 1 in. 185.4 cm. Weight: 157.6 lb. oz. 71.487 kg. Patient's BMI: 20.8 3. Vital Signs: BP: 154/97 Pulse: 121 Resp: 14 Temp: 02 Sat: 100 ECG Mon: 4. Pain Intensity: 3 5. Fall Risk: Dizziness: N Needs help standing or walking: N Fallen in the last 3 months: N Fall risk comments: PT HAS HIS OWN PLACE WERE HE LIVES BY HIMSELF 6. Patient on Blood Thinner: None 7. History of Hypertension: N 8. Opioid Therapy greater than 6 weeks: Y Opiate Contract Signed: 08/24/15 9. Risk Assessment Tool Provided: HIGH RISK 9 10. Functional Assessment Tool: 11. Recreational Drug Use: Past greater than 3 mos Drug Type: Tobacco Use: Current Some Day Smoker Tobacco Type: Cigars Amount or Packs/day: RARE How Many Years: Alcohol Use: No Frequency: Quant:
== END ==
LOC: PAIN 06:53
PROVIDERS: ATTEND Anesthesiology Pain Medicine
DX: R10.9 Unspecified abdominal pain (principal); G89.29 Other chronic pain; F41.8 Other specified anxiety disorders; F17.200 Nicotine dependence, unspecified, uncomplicated; Z88.8 Allergy status to other drugs, medicaments and biological substances; Z79.899 Other long term (current) drug therapy; Z87.19 Personal history of other diseases of the digestive system

== ENCOUNTER → 2020-05-11 | Outpatient (CLI) | payer OTHER ==
[~2020-05-11] VITALS: Ht 185.4 cm; Wt 76.5 kg
[2020-05-11 14:37] VITALS: BP 162/90
--- NOTE | 2020-05-11 14:50 | NUR ---
Pain Clinic Assessment: 1. History of Osteoarthritis: DENIES History of Rheumatoid Arthritis: DENIES 2. Height: 6 ft. 1 in. 185.4 cm. Weight: 168.6 lb. oz. 76.476 kg. Patient's BMI: 22.2 3. Vital Signs: BP: 162/90 Pulse: 110 Resp: 14 Temp: 02 Sat: 100 ECG Mon: 4. Pain Intensity: 3 5. Fall Risk: Dizziness: N Needs help standing or walking: N Fallen in the last 3 months: N Fall risk comments: PT HAS HIS OWN PLACE WERE HE LIVES BY HIMSELF 6. Patient on Blood Thinner: None 7. History of Hypertension: N 8. Opioid Therapy greater than 6 weeks: Y Opiate Contract Signed: 08/24/15 9. Risk Assessment Tool Provided: HIGH RISK 9 10. Functional Assessment Tool: 11. Recreational Drug Use: Past greater than 3 mos Drug Type: Tobacco Use: Light Tobacco Smoker Tobacco Type: Cigarettes Amount or Packs/day: cigar occ How Many Years: Alcohol Use: No Frequency: Quant:
--- NOTE | 2020-05-12 08:32 | HPC ---
[facility] [address] [place] [address] PAIN MANAGEMENT CONSULTATION Name: DOROTHY COLES Room #: REG MANDEEP KanikaJacintoKassi#: [id number] Admission: 05/11/20 Attend Phys: Yolis Garcia Discharge: Date of : 86 Report #: [id number] THIS REPORT FOR: cc: FAM - No family physician/PCP FAM - No family physician/PCP Yolis Garcia ~ DATE OF SERVICE: 05/11/2020 CHIEF COMPLAINT: Chronic abdominal pain. HISTORY OF PRESENT ILLNESS: This is a 29-year-old gentleman who returns to the pain clinic today for refill of his medications. The patient reports that he has been without his oxycodone for his breakthrough pain for about 3 weeks. He did report he had lost his Suboxone tablets. He was instructed to get a police report. This was last week. He reports he did not obtain a police report. He is due today to fill his medications. He believes they are lost in his house along with his eyedrop medications that he takes. The patient reports it is a "mess" at his house currently due to some remodeling. He is attempting to do. He reports he is not going to school currently because he was unable to afford his tuition and that it is all online. He is at the end of his degree and is unsure what online classes would be beneficial for him since he does need hands on labs. Today, he is requesting refills of his Suboxone and oxycodone. He has not had any Emergency Room visits. He reports he has been doing quite well on his current regimen and has not had any serious bouts of pancreatitis issues for quite some time. ALLERGIES: MORPHINE, CODEINE, FENTANYL, TRAMADOL, VANCOMYCIN. CURRENT LIST OF MEDICATIONS: Oxycodone 10/325 p.r.n., Suboxone 2 half a tab daily, Zofran, alprazolam, Adderall, Creon and Phenergan. PQRS: 1. He denies osteo or rheumatoid arthritis. His height is 6 feet 1 inch, weight is 168, BMI is 22. 2. Vital signs 162/90, pulse is 110, respirations 14, oxygen sat is 100, pain score is 3/10. Fall Risk: Denies dizziness, does not need help standing, has not fallen in the last 3 months. The patient is not on any blood thinners or medicine for hypertension. His opioid therapy is greater than 6 weeks. 3. His risk assessment is high. Functional assessment is 27/70. Recreational in the past. He is a light tobacco smoker of cigars occasionally and denies any alcohol use. According to the prescription monitoring system, the patient is due to fill his medications today. His morphine mEq is under the CDC guidelines. PHYSICAL EXAM: GENERAL: This is alert and orientated, slightly unkempt pleasant 29-year-old [address] [address] PAIN MANAGEMENT CONSULTATION Name: DOROTHY COLES ELKADER Room #: REG MANDEEP Jaramillo#: [id number] Admission: 05/11/20 Attend Phys: Yolis Garcia Discharge: Date of : 86 Report #: [id number] gentleman. He shows no signs of overmedication. He is anxious that is his typical normal appearance. HEENT: Normocephalic, atraumatic. Extraocular eye muscles are intact. He is wearing a mask. ABDOMEN: Tender. MUSCULOSKELETAL: He has calluses on his hands. There is a slightly dirty. They have been cleaning in the last few visits. He states working with his hands of remodeling his house. IMPRESSION: 1. Chronic abdominal pain with history of sphincter of Oddi syndrome. 2. Intermittent pancreatitis. 3. Depression and anxiety, following a psychiatrist, on Adderall and alprazolam. 4. Management of high risk medications under terms of written opioid agreement. PLAN: 1. We did discuss treatment options as a group today and a team conference regarding the patient. Normally, we would have him obtain a police report, which he did not obtain. He is due for his medications today. It is believable that he did lose his medication in his house. We will refill his buprenorphine 10/12, #15 with 2 additional refills. This is a month's supply with two additional refills. 2. We did discuss his oxycodone 1 prescription recently was for 15 mg, but the patient reports he had not been on that medication for quite some time. Upon perusal of the chart and discussion with Dr. Carrion, it was decided to keep him at the , again offering him 15 tablets for severe pain to keep him out of the Emergency Room. These will be released in 30-day increments. Three scripts sent electronically by Dr. Salgado. 3. We did discuss what the patient is doing with his spare time since he is not in school. He reports keeping active at home redoing his house. Hopefully, he will be able to return to school and finish his degree in the fall. 4. The patient will return in 3 months to see us for medication management. We hope that he will stay out of the Emergency Room by taking these as needed for severe breakthrough pain. The patient is seen today in collaboration with Dr. Hasmukh Carrion. <ELECTRONICALLY SIGNED> By: Yolis Garcia 05/12/20 [id number] Yolis muse
== END ==
LOC: PAIN 05-04 06:56
PROVIDERS: ATTEND Clinical Nurse Specialist Adult Health
DX: K85.00 Idiopathic acute pancreatitis without necrosis or infection (principal); G89.29 Other chronic pain; F41.8 Other specified anxiety disorders; F11.20 Opioid dependence, uncomplicated; Z88.8 Allergy status to other drugs, medicaments and biological substances; Z79.899 Other long term (current) drug therapy

== ENCOUNTER → 2020-09-24 | Outpatient (CLI) | payer OTHER ==
[~2020-09-24] VITALS: Ht 185.4 cm; Wt 76.2 kg
[2020-09-24 09:30] VITALS: BP 130/78
--- NOTE | 2020-09-24 09:34 | NUR ---
Pain Clinic Assessment: 1. History of Osteoarthritis: DENIES History of Rheumatoid Arthritis: DENIES 2. Height: 6 ft. 1 in. 185.4 cm. Weight: 168.0 lb. oz. 76.204 kg. Patient's BMI: 22.2 3. Vital Signs: BP: 130/78 Pulse: 100 Resp: 16 Temp: 02 Sat: 99 ECG Mon: 4. Pain Intensity: 7 5. Fall Risk: Dizziness: N Needs help standing or walking: N Fallen in the last 3 months: N Fall risk comments: PT HAS HIS OWN PLACE WERE HE LIVES BY HIMSELF 6. Patient on Blood Thinner: None 7. History of Hypertension: N 8. Opioid Therapy greater than 6 weeks: Y Opiate Contract Signed: 08/24/15 9. Risk Assessment Tool Provided: HIGH RISK 9 10. Functional Assessment Tool: 11. Recreational Drug Use: Past greater than 3 mos Drug Type: Tobacco Use: Light Tobacco Smoker Tobacco Type: Cigars Amount or Packs/day: 1 Q 6 MO How Many Years: Alcohol Use: No Frequency: Quant:
== END ==
LOC: PAIN 06:50
PROVIDERS: ATTEND Clinical Nurse Specialist Adult Health
DX: K85.90 Acute pancreatitis without necrosis or infection, unspecified (principal); G89.29 Other chronic pain; F32.9 Major depressive disorder, single episode, unspecified; F41.9 Anxiety disorder, unspecified; Z79.899 Other long term (current) drug therapy; Z79.891 Long term (current) use of opiate analgesic; Z88.5 Allergy status to narcotic agent; Z88.1 Allergy status to other antibiotic agents

== ENCOUNTER → 2020-12-28 | Outpatient (CLI) | payer OTHER ==
[~2020-12-28] VITALS: Ht 185.4 cm; Wt 77.0 kg
[2020-12-28 09:09] VITALS: BP 162/101
--- NOTE | 2020-12-28 09:20 | NUR ---
Pain Clinic Assessment: 1. History of Osteoarthritis: DENIES History of Rheumatoid Arthritis: DENIES 2. Height: 6 ft. 1 in. 185.4 cm. Weight: 169.8 lb. oz. 77.021 kg. Patient's BMI: 22.4 3. Vital Signs: BP: 162/101 Pulse: 103 Resp: 20 Temp: 02 Sat: 100 ECG Mon: 4. Pain Intensity: 4 5. Fall Risk: Dizziness: N Needs help standing or walking: N Fallen in the last 3 months: N Fall risk comments: PT HAS HIS OWN PLACE WERE HE LIVES BY HIMSELF 6. Patient on Blood Thinner: None 7. History of Hypertension: N 8. Opioid Therapy greater than 6 weeks: Y Opiate Contract Signed: 08/24/15 9. Risk Assessment Tool Provided: HIGH RISK 9 10. Functional Assessment Tool: 11. Recreational Drug Use: Past greater than 3 mos Drug Type: Tobacco Use: Former Smoker Tobacco Type: Amount or Packs/day: How Many Years: Alcohol Use: No Frequency: Quant:
== END ==
LOC: PAIN 06:56
PROVIDERS: ATTEND Clinical Nurse Specialist Adult Health
DX: K86.1 Other chronic pancreatitis (principal); G89.29 Other chronic pain; R10.9 Unspecified abdominal pain; F41.8 Other specified anxiety disorders; Z88.8 Allergy status to other drugs, medicaments and biological substances; Z79.899 Other long term (current) drug therapy

== ENCOUNTER → 2021-04-01 | Outpatient (CLI) | payer OTHER ==
[~2021-04-01] VITALS: Ht 185.4 cm; Wt 74.2 kg
[2021-04-01 10:08] VITALS: BP 139/91
--- NOTE | 2021-04-01 10:10 | NUR ---
Pain Clinic Assessment: 1. History of Osteoarthritis: DENIES History of Rheumatoid Arthritis: DENIES 2. Height: 6 ft. 1 in. 185.4 cm. Weight: 163.6 lb. oz. 74.208 kg. Patient's BMI: 21.6 3. Vital Signs: BP: 139/91 Pulse: 93 Resp: 18 Temp: 02 Sat: 98 ECG Mon: 4. Pain Intensity: 7 5. Fall Risk: Dizziness: N Needs help standing or walking: N Fallen in the last 3 months: N Fall risk comments: PT HAS HIS OWN PLACE WERE HE LIVES BY HIMSELF 6. Patient on Blood Thinner: None 7. History of Hypertension: N 8. Opioid Therapy greater than 6 weeks: Y Opiate Contract Signed: 08/24/15 9. Risk Assessment Tool Provided: HIGH RISK 9 10. Functional Assessment Tool: 11. Recreational Drug Use: Past greater than 3 mos Drug Type: Tobacco Use: Former Smoker Tobacco Type: Amount or Packs/day: How Many Years: Alcohol Use: No Frequency: Quant:
== END ==
LOC: PAIN 08:12
PROVIDERS: ATTEND Clinical Nurse Specialist Adult Health
DX: G89.29 Other chronic pain (principal); R10.9 Unspecified abdominal pain; K85.90 Acute pancreatitis without necrosis or infection, unspecified; F41.9 Anxiety disorder, unspecified; F34.89 Other specified persistent mood disorders; Z87.891 Personal history of nicotine dependence; Z88.8 Allergy status to other drugs, medicaments and biological substances; Z79.899 Other long term (current) drug therapy